=== PATIENT | female | born 1950 | race Caucasian/White ===

== ENCOUNTER 2017-05-18 16:36 | Emergency (ER) | payer OTHER ==
[2017-05-18 17:27] LABS: RED BLOOD COUNT 5.02 M/UL (4.00-5.10); WHITE BLOOD COUNT 15.4 K/UL (4.5-11.0)
[2017-05-18 17:47] LABS: BUN/CREATININE RATIO 36 (0-10)
== END 2017-05-19 03:14 ==
LOC: ER1 16:36
PROVIDERS: Emergency Medicine
DX: K85.90 Acute pancreatitis without necrosis or infection, unspecified (principal); R79.89 Other specified abnormal findings of blood chemistry
CPT/HCPCS: 36415; 80053; 81001; 82150; 83690; 85025; 85610; 85730; 87040; 96374; 96375; 99285; J1335; J2405; J7030; J7050; Q9962